=== PATIENT | male | born 1960 | race Caucasian/White ===

== ENCOUNTER 2016-08-11 02:08 | Emergency (ER) | payer SELFPAY ==
--- NOTE | 2016-08-11 04:14 | ED ORDER SUMMARY ---
..... Patient: GERARDO BOWER OrderSheet [facility] VisitID: [id number] [place] [address] 55y, M Registration Date/Time: 08/11/2016 ORDER SHEET Weight: 99.7 kg (estimated) Allergies: No Known Drug Allergy GENERAL ORDERS: Cardiac Panel Stat (02:20 08/11/2016 Kim Whitley) (Ack 2:21 Luciaimana) (2:26 DDavis R.N.) UA-Culture if indicated Urgent (02:20 08/11/2016 Kim Whitley) (Ack 2:21 Clair) (3:26 CHagerty ER Nut Roaster) BNP Urgent (02:20 08/11/2016 Kim Whitley) (Ack 2:21 Clair) (2:26 DDavis R.N.) D-Dimer Urgent (02:20 08/11/2016 Kim Whitley) (Ack 2:21 Clair) (2:26 DDavis R.N.) Urine Drug Screen Urgent (02:20 08/11/2016 Kim Whitley) (Ack 2:21 Evena) (3:26 CHagerty ER Nut Roaster) Chest 1V Urgent (02:21 08/11/2016 Kim Whitley) (Ack 2:22 Verónica ER Nut Roaster) (Ack 2:24 Clair) (2:33 GUnger) EKG - ER Stat (02:29 08/11/2016 Verónica ER Nut Roaster per protocol) (2:29 CHagerty ER Nut Roaster) CTA Thorax w Cont (No) (23/1.3) Urgent (03:28 08/11/2016 Kim Whitley) (Ack 3:36 Clair) (4:09 GUnger) MEDICATION ORDERS: NitroGLYCERIN Paste Topical 1 in. (NOW, to CW) (02:40 08/11/2016 Kim Whitley) (2:57 DDavis R.N.) IV FLUIDS: IV Saline Lock (02:20 08/11/2016 Kim Whitley) (2:34 DDavis R.N.) Lasix IV 40 mg (NOW) (02:40 08/11/2016 Kim Whitley) (Ack 2:57 Alex Maria) (2:57 Alex Maria) ORDER SHEET NOTES: [Electronically signed by Micheal Cox Dr. (04:20 08/11/2016)] [Electronically signed by Prabhu Bower R.N. (04:30 08/11/2016)] [Electronically locked/signed by Prabhu Bower R.N. (04:30 08/11/2016)]
--- NOTE | 2016-08-11 04:14 | ED NURSING NOTES ---
Clinical Report - Nurses [facility] [place] [address] 08/11/2016 2:10 Patient: GERARDO BOWER TRIAGE Triage time 02:12. Acuity: LEVEL 2. Chief Complaint: SHORTNESS OF BREATH and DIFFICULTY BREATHING. --02:21 Prabhu Bower R.N. 02:12 08/11/16. BP: 127/94. HR: 117. RR: 23. O2 saturation: 91% on room air. Pain level now: 0/10. --02:21 Prabhu Bower R.N. 02:22 08/11/16. O2 saturation: 94%. Temp: 97.6 F. --02:22 Prabhu Bower R.N. Weight: 99.7 kg estimated. Height/Length: 70 inches Per Patient. BMI: 31.5. --02:12 Prabhu Bower R.N. Allergies No Known Drug Allergy. --02:14 Prabhu Bower R.N. History Onset. (2 months). ( SOA increased in last 2 days, smoked crystal meth and herion tonight). He has had difficulty breathing. SOCIAL HX: Smoker- current status unknown (cigarette). Occasional alcohol use. History of weekly drug use: heroin, methamphetamines. Recently used drugs today. --02:21 Prabhu Bower R.N. PROBLEMS: Anxiety Reaction. Congestive Heart Failure. Myocardial Infarction. --02:15 Prabhu Bower R.N. Interventions ID band on patient. To treatment room. --02:21 Prabhu Bower R.N. PHYSICAL ASSESSMENT ( patient speaking in full sentences). GENERAL / NEURO / PSYCH: Alert. Oriented X 4. HEENT: Mucous membranes are pink. RESPIRATORY: Mild respiratory distress. ( breath sounds diminished bilaterally). CVS: ( sinus tach on monitor). EXTREMITIES: Bilateral 2+ edema of the lower extremities. SKIN: Skin is dry. Skin is cool. --02:24 Prabhu Bower R.N. GENERAL / NEURO / PSYCH: Appears anxious. --02:24 Prabhu Bower R.N. 04:14 08/11/16. HR: 118. RR: 24. O2 saturation: 99% on room air. --04:14 Prabhu Bower R.N. ( Doctor Kenny discussed admission with patient, patient refused transfer to another hospital. Patient states that he will sign out AMA after Doctor Kenny discussed risks of leaving AMA with the patient.). --04:21 Prabhu Bower R.N. ( Patient signed AMA form, and ambulated out of the ER.). --04:22 Prabhu Bower R.N. NURSING PROGRESS NOTES Monitoring of patient in place. Patient gowned. Head of bed elevated. Two patient identifiers checked. Call light placed in reach. Side rails up x 1. Bed placed in lowest position. Brakes of bed on. Patient ready for evaluation- chart flagged. Patient waiting for evaluation. --02:22 Prabhu Bower R.N. EKG time: (7). EKG was ordered, performed by a tech and shown to the ED physician. --02:29 Colten Tanner, ER Certified Breastfeeding Educator 02:24 08/11/2016 Site #1 started via IV in the right forearm with an 20g angiocath; one attempt. Blood drawn. Labeled in the presence of the patient and sent to the lab. Saline lock flushed with saline. --02:34 Prabhu Bower R.N. 02:51 08/11/2016 NITROGLYCERIN PASTE Topical Paste 1 inch. Applied to the right chest. Allergies verified and confirmed 5 rights. --02:57 Prabhu Bower R.N. 02:57 08/11/2016 Lasix IVP 40 mg given over 4 minute(s) via site #1. Allergies verified and confirmed 5 rights. IV patency established. IV site checked: no pain, redness, or swelling. IV flushed thoroughly pre- and post-medication administration. --02:57 Prabhu Bower R.N. ( Patient acting anxious, and demands to dangle legs over edge of bed. Bed has one siderail up, patient sits on bed and dangles legs. Patient closed eyes and rocked forward, and I insisted that he lay in bed and put his feet up. Patient refused and stated that when he rocked forward "I was just trying to get your attention. It was a practice run." Patient requested to lay back in the bed due to risk of falling, he refused a second time.). --03:00 Prabhu Bower R.N. Patient ID band checked for patient name and birthdate: patient confirmed. Clean catch urine collected with return of yellow-colored clear urine; sample sent to lab for urinalysis and drug screen. Specimen labeled in the presence of the patient. --03:25 Colten Tanner, ER Certified Breastfeeding Educator 03:28. Critical value relayed to ED by [employer]pex[employer]. Critical value received by Josh DRUMMOND. D-dimer 4.18. ED physician notifed of critical value. --03:28 Josh Crawley R.N. ( Patient taken to CT by trim technician). --03:49 Prabhu Bower R.N. ( I assisted the patient in urinating via his urinal. Patient is irritable and repeatedly states that he wants to speak with his female friend. Patient walking around in his room, refused to sit in bed. Patient states that if his friend does not remain in the room with him "I'm going to fucking leave. She has the keys to my truck."). --04:07 Prabhu Bower R.N. ( Patient's friend and the patient arguing in the ER room. Patient's friend just left the room, and left the hospital. Patinet pacing in his room.). --04:11 Prabhu Bower R.N. 04:12 08/11/16. HR: 118. Additional comments: sinus tach on monitor, unable to get an O2 sat, due to patient movement. --04:12 Prabhu Bower R.N. 04:16 08/11/2016 Site #1 removed upon discharge. Manual pressure and bandage applied. --04:26 Prabhu Bower R.N. DISPOSITION / DISCHARGE Cardiac rhythm: sinus tachycardia. Departure time: 04:21. Condition at departure: unchanged. The patient left prior to discharge education being provided. The patient left the Emergency Department against medical advice and without completion of treatment; patient was unaccompanied. The patient appears to be alert, oriented x4, coherent, uncooperative, belligerent and using abusive language. The patient notified the ED staff prior to leaving the department. Notified the ED physician of patient departure. Prior to leaving the ED, he was advised to stay for completion of treatment and return if needed. He was informed of the risks of leaving and verbalized understanding of these risks. Patient signed form prior to leaving. He left the Emergency Department ambulatory. --04:25 Prabhu Bower R.N. 04:20. --04:30 Prabhu Bower R.N. 04:14 08/11/16. HR: 118. RR: 24. O2 saturation: 99% on room air. --04:30 Prabhu Bower R.N. Locked/Released at 08/11/2016 4:30 by Prabhu Bower R.N.
--- NOTE | 2016-08-11 04:14 | ED CLINICAL REPORT ---
Clinical Report - Physicians/Mid Levels [facility] [address] [place] [address] 08/11/2016 2:10 Patient: GERARDO AGUILAR Time Seen: 0213. Arrived- By private vehicle. Historian- patient. HISTORY OF PRESENT ILLNESS Chief Complaint: DYSPNEA and HISTORY OF CONGESTIVE HEART FAILURE. This started about 2 months ago and is still present and worsening. (worse since last night). It was gradual in onset. The dyspnea is described as moderate. The dyspnea is worsened by walking and exertion. No improvement of dyspnea with rest, oxygen or sitting upright. No cough, fever, sweating episodes, wheezing or chills. No chest pain, orthopnea or palpitations. He has had chest discomfort, dyspnea on exertion, calf pain, foot swelling and anxiety. Similar symptoms previously: Many times. Recent medical care: The patient was seen recently at another facility and hospitalized. ( Has left AMA multiple times). REVIEW OF SYSTEMS No nausea, vomiting or abdominal pain. He has had difficulty breathing, pedal edema and skin rash. All systems otherwise negative, except as recorded above. PAST HISTORY Anxiety Reaction. Congestive Heart Failure. Myocardial Infarction. Multiple stents per pt. SOCIAL HISTORY Current every day smoker. History of heavy IV drug use: heroin, methamphetamines. Recently used drugs just prior to arrival. Under influence in ED. No alcohol use. ADDITIONAL NOTES The nursing notes have been reviewed. PHYSICAL EXAM Vital Signs: 08/11/2016 02:12 BP: 127/94. HR: 117. RR: 23. O2 saturation: 91%. Pain level now: 0/10. Have been reviewed. Hypertensive. Tachycardic. Tachypneic. Temperature normal. Oxygen saturation low. Appearance: Anxious. No apparent distress. Eyes: Eyes normal inspection. ENT: Dry mucous membranes present. Neck: Normal inspection. No jugular venous distention. CVS: Normal heart rate and rhythm. Heart sounds normal. Respiratory: No respiratory distress. Breath sounds normal. Abdomen: Soft and nontender. No organomegaly. Skin: Medium area of erythema to right leg and left leg. Extremities: Bilateral 3+ pitting edema of the lower extremities involving both thighs. No calf tenderness. Neuro: Oriented X 3. LABS, X-RAYS, AND EKG EKG: EKG time: (216). Tachycardia (ventricular rate 117). Sinus tachycardia. Normal P waves. Normal ARTHUR. Normal QRS complex. Incomplete RBBB. Normal axis. Normal ST and T waves. Prolonged QTc (462). Prior EKG unavailable. The study has been interpreted contemporaneously by me. The study has been independently viewed by me. The EKG appears to be a good tracing. Interpretation time: 216. Chest X-ray: Congestive heart failure present. Vascular congestion present. Moderate cardiomegaly with signs of vascular congestion. No infiltrate. Views: AP. Technique: good. The X-rays were independently viewed by me and interpreted contemporaneously by me. Prior films were not available for comparison. Interpretation time: 02:34. Laboratory Tests: UA-Culture if indicated: (DENNIS: 08/11/2016 03:25) ( [facility] 08/11/2016 04:01) Final results Test Result Flag Units (Reference) URINE COLOR YELLOW URINE APPEARANCE CLEAR URINE GLUCOSE NEGATIVE (NEGATIVE) URINE BILIRUBIN NEGATIVE (NEGATIVE) URINE KETONE NEGATIVE (NEGATIVE) URINE SPECIFIC GRAVITY 1.015 (1.010-1.030) URINE PH 6.0 (5.0-8.0) URINE PROTEIN NEGATIVE (NEGATIVE) URINE UROBILINOGEN 1.0 EU/dL (0.2-1.0) URINE NITRITE NEGATIVE (NEGATIVE) URINE BLOOD NEGATIVE (NEGATIVE) URINE LEUK ESTERASE NEGATIVE (NEGATIVE) URINE RBC 0-1 rbc/hpf (0-1) URINE WBC 0-1 wbc/hpf (0-1) URINE EPITHELIAL CELLS 0-1 EPI/hpf (0-5) URINE BACTERIA NONE SEEN (NONE SEEN) URINE COMMENT CULT NOT INDICATED URINE CULTURES ARE SET-UP BASED ON THE FOLLOWING CRITERIA:POSITIVE NITRITEPOSITIVE LEUKOCYTE ESTERASEGREATER THAN 10 WHITE BLOOD CELLSMODERATE (2+) OR GREATER BACTERIA CBC w Diff: (DENNIS: 08/11/2016 02:25) ( [facility] 08/11/2016 02:34) Final results Test Result Flag Units (Reference) WHITE BLOOD COUNT 11.2 K/uL (4.5-11.5) RED BLOOD COUNT 5.34 M/uL (4.50-5.90) HEMOGLOBIN 14.6 gm/dL (13.5-17.5) HEMATOCRIT 46.9 % (41.0-53.0) MEAN CELL VOLUME 88 fL (80-100) MEAN CORPUSCULAR HGB 27 pg (26-34) MEAN CORPUSCULAR HGB CONC 31 g/dL (31-37) RED CELL DISTRIBUTION WIDTH 16.6 H % (11.6-14.8) PLATELET COUNT 312 K/uL (150-400) NEUTROPHIL % 58.7 % (50-75) LYMPH % 29.0 % (25-40) MONO % 10.3 % (3-14) EOSINOPHIL % 1.1 % (0-4) BASOPHIL % 0.9 % (0-2) [id number]: (DENNIS: 08/11/2016 02:50) ( MsgRcvd 08/11/2016 03:27) Final results Test Result Flag Units (Reference) D-DIMER QUANTITATIVE 4.18 *H ug/mLFEU (0.27-0.52) CRITICAL RESULTS CALLEDCalled to MAN ROCHA RN 08/11/16 0326Were 2 patient identifiers used? YWas the result read back? YThe primary value of this quantitative assay relates toits negative predictive value (i.e. exclusion) of pulmonaryembolism/deep vein thrombosis/DIC.Elevated levels of d-dimer may also occur with:, age, cancer, inflammation, liver disease,post-op, infection, hematoma, coronary disease, peripheralarteriopathy, bleeding disorders and thrombolytic treatment.Results should be correlated with other clinical andradiological data.Testing Methodology: Latex Immunoassay Urine Drug Screen: (DENNIS: 08/11/2016 03:25) ( [facility] 08/11/2016 04:00) Final results Test Result Flag Units (Reference) AMPHETAMINE/METHAMPHETAMINE POSITIVE H (NEGATIVE) BARBITURATE NEGATIVE (NEGATIVE) BENZODIAZEPINE NEGATIVE (NEGATIVE) CANNABINOID NEGATIVE (NEGATIVE) COCAINE NEGATIVE (NEGATIVE) ECSTASY NEGATIVE (NEGATIVE) METHADONE NEGATIVE (NEGATIVE) OPIATE POSITIVE H (NEGATIVE) The urine drug screen is a qualitative screening test fordrug overdose and abuse. All screen results should beconsidered as presumptive.Drugs screened for are as follows:BenzodiazepinesCocaineAmphetamines/MetamphetaminesTHC (Tetrahydrocannabinol)OpiatesBarbituratesEcstasyMethadonePositive results are unconfirmed. For confirmation, notifythe lab for the specimen to be sent to the reference lab.All confirmations must be performed by a differentmethodology.The ingestion of natural herbal and plant productscontaining Ephedra/Ephedra metabolites can produce in urineone or more substances capable of cross reacting withamphetamine/methamphetamine immunoassays. These testsprovide a preliminary result only. A more specificalternative chemical method must be used to obtain aconfirmed analytical result. BNP: (DENNIS: 08/11/2016 02:25) ( MsgRcvd 08/11/2016 02:59) Final results Test Result Flag Units (Reference) B-TYPE NATRIURETIC PEPTIDE 1270 H pg/ml (5-100) CHEM 13 PANEL: (DENNIS: 08/11/2016 02:25) ( MsgRcvd 08/11/2016 03:08) Final results Test Result Flag Units (Reference) GLUCOSE 103 mg/dL (70-110) BUN 23 H mg/dL (7-18) CREATININE 1.3 mg/dL (0.6-1.3) Estimated GFR >60 mL/min Estimated GFR- >60 mL/min Note: Persistent reduction over 3 months in eGFR<60 mL/min/1.73 m2 defines CKD. Patients with eGFR values>=60 mL/min/1.73 m2 may also have CKD if evidence ofpersistent proteinuria. Additional information may be foundat www.kidney.org. SODIUM 138 mmol/L (136-145) POTASSIUM 4.3 mmol/L (3.5-5.1) CHLORIDE 102 mmol/L (98-107) CARBON DIOXIDE 27 mmol/L (21-32) CALCIUM 9.0 mg/dL (8.5-10.1) TOTAL PROTEIN 7.2 g/dL (6.4-8.2) ALBUMIN 3.0 L g/dL (3.3-5.0) BILIRUBIN, TOTAL 1.2 H mg/dL (0.0-1.0) ALKALINE PHOSPHATASE 174 H U/L (46-116) AST (SGOT) 153 H U/L (15-37) ALT (SGPT) 118 H U/L (12-78) CPK 288 H U/L (24-260) MAGNESIUM 1.9 mg/dL (1.8-2.4) CK-MB 4.4 H ng/mL (0.5-3.2) %CKMB 1.5 % (0.0-4.0) TROPONIN I 0.50 ng/mL (0.00-1.5) TROPONIN REFERENCE RANGE:<0.1 NEGATIVE0.1-1.5 INDETERMINANT>1.5 POSITIVE . PROGRESS AND PROCEDURES Discussed case with hospitalist, (call returned 03:44 Dr. Estrada. Due to his cardiac history and indeterminate troponins, he did not feel comfortable w/out cardiology services admitting the pt here.). Reviewed test results and need for additional work-up. Refers case to other health care provider. CLINICAL IMPRESSION Acute moderate systolic and diastolic, left ventricular and right ventricular congestive heart failure. INSTRUCTIONS Follow-up: Screening today revealed the patient's blood pressure to be in the hypertensive range. The patient should follow up with a primary care provider for blood pressure management. AMA warnings: Time of assessment: 04:10. Oriented to person, place, and time. Gives appropriate answers and rational explanation of refusal of care. No indication for involuntary commitment is present, signs of psychosis, auditory hallucinations, delusional thinking or suicidal ideations. No slurred speech, tangential thinking, visual hallucinations or homicidal ideations. Speaks coherently. Abstract thinking intact. Clinical Impression: the patient has the capacity to make decisions regarding the medical care offered. Relevant issues reviewed and discussed with the patient. Aware of suspected diagnosis suggested by screening exam (ACS and CHF). The suspected diagnosis, based upon the initiated medical screening exam, is ACS, CHF and has been discussed with the patient. Acknowledges understanding of the reasons for recommendations regarding medical treatment and transfer to other medical facility. The recommended medical care being refused is Transfer to a hospital with cardiology and has been discussed with the patient. The risks of refusing recommended care that were disclosed and acknowledged are . Alternatives for the patient's care that were offered yet declined include transfer. Discharge instructions were not provided. (Electronically signed by Micheal Cox Dr. 08/11/2016 4:20)
--- NOTE | 2016-08-11 04:14 | ED ORDER SUMMARY ---
..... Patient: GERARDO BOWER OrderSheet [facility] VisitID: [id number] [place] [address] 55y, M Registration Date/Time: 08/11/2016 ORDER SHEET Weight: 99.7 kg (estimated) Allergies: No Known Drug Allergy GENERAL ORDERS: Cardiac Panel Stat (02:20 08/11/2016 Kim Whitley) (Ack 2:21 Luciaimana) (2:26 DDavis R.N.) UA-Culture if indicated Urgent (02:20 08/11/2016 Kim Whitley) (Ack 2:21 Clair) (3:26 CHagerty ER Doctor Of Naprapathy) BNP Urgent (02:20 08/11/2016 Kim Whitley) (Ack 2:21 Clair) (2:26 DDavis R.N.) D-Dimer Urgent (02:20 08/11/2016 Kim Whitley) (Ack 2:21 Clair) (2:26 DDavis R.N.) Urine Drug Screen Urgent (02:20 08/11/2016 Kim Whitley) (Ack 2:21 Evena) (3:26 CHagerty ER Doctor Of Naprapathy) Chest 1V Urgent (02:21 08/11/2016 Kim Whitley) (Ack 2:22 Verónica ER Doctor Of Naprapathy) (Ack 2:24 Clair) (2:33 GUnger) EKG - ER Stat (02:29 08/11/2016 Verónica ER Doctor Of Naprapathy per protocol) (2:29 CHagerty ER Doctor Of Naprapathy) CTA Thorax w Cont (No) (23/1.3) Urgent (03:28 08/11/2016 Kim Whitley) (Ack 3:36 Clair) (4:09 GUnger) MEDICATION ORDERS: NitroGLYCERIN Paste Topical 1 in. (NOW, to CW) (02:40 08/11/2016 Kim Whitley) (2:57 DDavis R.N.) IV FLUIDS: IV Saline Lock (02:20 08/11/2016 Kim Whitley) (2:34 DDavis R.N.) Lasix IV 40 mg (NOW) (02:40 08/11/2016 Kim Whitley) (Ack 2:57 Alex Maria) (2:57 Alex Maria) ORDER SHEET NOTES: [Electronically signed by Micheal Cox Dr. (04:20 08/11/2016)] [Electronically signed by Prabhu Bower R.N. (04:30 08/11/2016)] [Electronically locked/signed by Prabhu Bower R.N. (04:30 08/11/2016)]
--- NOTE | 2016-08-11 04:31 | ED MED RECONCILIATION SUMMARY ---
Patient: GERARDO AGUILAR Medication Reconciliation Report [facility] VisitID: [id number] [address] [place] [address] 55y, M Registration Date/Time: 08/11/2016 Weight: 99.7 kg Height/Length: 70 in. BMI: 31.5 ALLERGIES: No Known Drug Allergy The patient's Home Medications are listed below: Not obtained. The source(s) of the original Home Medication information: Not obtained. The following Medications were given to the patient in the Emergency Department: NITROGLYCERIN PASTE [TOPICAL] Topical 1 in., administered: 08/11/2016 2:51:00 AM Lasix [IVP] IVP 40 mg, administered: 08/11/2016 2:57:00 AM The following Medications were prescribed to the patient: None.
--- NOTE | 2016-08-11 04:31 | ED DISCHARGE INSTRUCTIONS ---
Patient: GERARDO AGUILAR General Instructions [facility] VisitID: [id number] [place] [address] 55y, M Registration Date/Time: 08/11/2016 Acute moderate systolic and diastolic, left ventricular and right ventricular congestive heart failure. INSTRUCTIONS Follow-up: Screening today revealed the patient's blood pressure to be in the hypertensive range. The patient should follow up with a primary care provider for blood pressure management. AMA warnings: Time of assessment: 04:10. Oriented to person, place, and time. Gives appropriate answers and rational explanation of refusal of care. No indication for involuntary commitment is present, signs of psychosis, auditory hallucinations, delusional thinking or suicidal ideations. No slurred speech, tangential thinking, visual hallucinations or homicidal ideations. Speaks coherently. Abstract thinking intact. Clinical Impression: the patient has the capacity to make decisions regarding the medical care offered. Relevant issues reviewed and discussed with the patient. Aware of suspected diagnosis suggested by screening exam (ACS and CHF). The suspected diagnosis, based upon the initiated medical screening exam, is ACS, CHF and has been discussed with the patient. Acknowledges understanding of the reasons for recommendations regarding medical treatment and transfer to other medical facility. The recommended medical care being refused is Transfer to a hospital with cardiology and has been discussed with the patient. The risks of refusing recommended care that were disclosed and acknowledged are . Alternatives for the patient's care that were offered yet declined include transfer. Discharge instructions were not provided. (Electronically signed by Micheal Cox Dr. 08/11/2016 4:20)
--- NOTE | 2016-08-11 04:31 | ED MAR SUMMARY ---
..... Medication Administration Record [facility] [address] [place] [address] Patient: GERARDO BOWER Visit ID: [id number] 55y, M Weight: 99.7 kg Height/Length: 70 in BMI: 31.5 ALLERGIES: No Known Drug Allergy Given 02:51 08/11/2016 Prabhu Bower, ROzielN. Medication Administered: NITROGLYCERIN PASTE [TOPICAL], Dose: 1 in. Paste Topical. Medication Ordered: NitroGLYCERIN Paste Topical 1 in. (NOW, to CW). Given 02:57 08/11/2016 Prabhu Bower, ROzielN. Medication Administered: LASIX [IVP], Dose: 40 mg IVP over 4 minute(s), Site: #1 right forearm. Medication Ordered: Lasix IV 40 mg (NOW).
--- NOTE | 2016-08-11 04:31 | ED MAR SUMMARY ---
..... Medication Administration Record [facility] [address] [place] [address] Patient: GERARDO BOWER Visit ID: [id number] 55y, M Weight: 99.7 kg Height/Length: 70 in BMI: 31.5 ALLERGIES: No Known Drug Allergy Given 02:51 08/11/2016 Prabhu Bower, ROzielN. Medication Administered: NITROGLYCERIN PASTE [TOPICAL], Dose: 1 in. Paste Topical. Medication Ordered: NitroGLYCERIN Paste Topical 1 in. (NOW, to CW). Given 02:57 08/11/2016 Prabhu Bower, ROzielN. Medication Administered: LASIX [IVP], Dose: 40 mg IVP over 4 minute(s), Site: #1 right forearm. Medication Ordered: Lasix IV 40 mg (NOW).
--- NOTE | 2016-08-11 04:31 | ED MED RECONCILIATION SUMMARY ---
Patient: GERARDO AGUILAR Medication Reconciliation Report [facility] VisitID: [id number] [address] [place] [address] 55y, M Registration Date/Time: 08/11/2016 Weight: 99.7 kg Height/Length: 70 in. BMI: 31.5 ALLERGIES: No Known Drug Allergy The patient's Home Medications are listed below: Not obtained. The source(s) of the original Home Medication information: Not obtained. The following Medications were given to the patient in the Emergency Department: NITROGLYCERIN PASTE [TOPICAL] Topical 1 in., administered: 08/11/2016 2:51:00 AM Lasix [IVP] IVP 40 mg, administered: 08/11/2016 2:57:00 AM The following Medications were prescribed to the patient: None.
--- NOTE | 2016-08-11 04:31 | ED DISCHARGE INSTRUCTIONS ---
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 INSTRUCTIONS Follow-up: Screening today revealed the patient's blood pressure to be in the hypertensive range. The patient should follow up with a primary care provider for blood pressure management. AMA warnings: Time of assessment: 04:10. Oriented to person, place, and time. Gives appropriate answers and rational explanation of refusal of care. No indication for involuntary commitment is present, signs of psychosis, auditory hallucinations, delusional thinking or suicidal ideations. No slurred speech, tangential thinking, visual hallucinations or homicidal ideations. Speaks coherently. Abstract thinking intact. Clinical Impression: the patient has the capacity to make decisions regarding the medical care offered. Relevant issues reviewed and discussed with the patient. Aware of suspected diagnosis suggested by screening exam (ACS and CHF). The suspected diagnosis, based upon the initiated medical screening exam, is ACS, CHF and has been discussed with the patient. Acknowledges understanding of the reasons for recommendations regarding medical treatment and transfer to other medical facility. The recommended medical care being refused is Transfer to a hospital with cardiology and has been discussed with the patient. The risks of refusing recommended care that were disclosed and acknowledged are . Alternatives for the patient's care that were offered yet declined include transfer. Discharge instructions were not provided. (Electronically signed by Micheal Cox Dr. 08/11/2016 4:20)
--- NOTE | 2016-08-11 07:44 | DIAGNOSTIC IMAGING REPORT ---
PROCEDURE: CTA THORAX WITH CONTRAST INDICATION: PULMONARY EMBOLUS TECHNIQUE: 105 ml of Isovue 370 was injected intravenously and axial images were obtained of the chest with 3D sagittal and coronal MIP reconstructions. COMPARISON: Chest x-ray Performed the same day. FINDINGS: Normal opacification of the pulmonary arterial tree without filling defect. The central pulmonary arteries are normal caliber. Thoracic aorta is normal caliber with mild atherosclerotic calcification. The great vessels demonstrate a normal branching pattern. Stent in the left circumflex coronary artery. Heart size is moderately diffusely enlarged. No pericardial effusion. Nonenlarged superior mediastinal lymph nodes are present. No bulky adenopathy or mediastinal masses. The esophagus is normal in caliber without hiatal hernia. The thyroid gland is normal. The lungs are clear. The airway is patent and branches normally. Small right pleural effusion. Subacute anterior right-sided rib fractures two through five and anterolateral left-sided rib fractures three through seven. Non-united mid sternal fracture with surrounding callus. Images through the upper abdomen demonstrate a cirrhotic liver morphology and perihepatic and perisplenic ascites. IMPRESSION: 1. No pulmonary embolus. 2. Cardiomegaly and coronary stent. 3. Small right pleural effusion. 4. Prior bilateral rib fractures and sternal fracture. 5. Cirrhosis and ascites. 6. Preliminary report [facility].
--- NOTE | 2016-08-11 07:45 | DIAGNOSTIC IMAGING REPORT ---
PROCEDURE: XR CHEST 1 VIEW INDICATION: SHORTNESS OF BREATH TECHNIQUE: Single view chest. 02:30 hours COMPARISON: None. FINDINGS: The heart is enlarged. Mediastinal contour is normal. No central vascular congestion. The lungs are clear without focal consolidation, pleural effusion or pneumothorax. Prior left lateral rib fractures. IMPRESSION: 1. Cardiomegaly without radiographic findings of CHF. Correlate clinically. 2. Prior left-sided rib fractures visible.
== END 2016-08-11 04:20 | disposition left against medical advice (07) ==
LOC: ED SRH 02:08
DX: I50.41 Acute combined systolic (congestive) and diastolic (congestive) heart failure (principal); F17.200 Nicotine dependence, unspecified, uncomplicated
CPT/HCPCS: 90004; 90074; 90100; 90616; 90617; 91320; 91556; 92610; 92720; 92760; 92761; 92762; 92763; 92764; 92765; 92766; 92767; 95059